=== PATIENT | female | born 1955 | race Caucasian/White ===

== ENCOUNTER → 2021-06-22 | Outpatient (CLI) | payer MEDICARE, OTHER | LOC: EXRD 11:08 | DX: Z78.0 Asymptomatic menopausal state (principal) | CPT/HCPCS: 77080 ==

== ENCOUNTER 2022-01-02 13:22 | Emergency (ER) | payer MEDICARE, OTHER ==
[2022-01-02 14:28] LABS: HEMOGLOBIN 14.7 gm/dl (12.3-15.3); RED BLOOD COUNT 4.73 M/UL (4.00-5.10); WHITE BLOOD COUNT 9.7 K/UL (4.5-11.0)
[2022-01-02 14:50] LABS: BUN/CREATININE RATIO 19 (0-10)
== END 2022-01-02 18:55 | disposition home or self-care (01) ==
LOC: ER1 13:22
PROVIDERS: Physician Assistant
DX: I10 Essential (primary) hypertension (principal); F41.9 Anxiety disorder, unspecified; E78.5 Hyperlipidemia, unspecified
CPT/HCPCS: 71045; 80053; 82550; 82553; 84484; 85025; 93005; 99284

== ENCOUNTER 2022-01-17 01:19 | Emergency (ER) | payer MEDICARE, OTHER | END 2022-01-17 02:38 | disposition left against medical advice (07) | LOC: ER1 01:19 | DX: Z53.21 Procedure and treatment not carried out due to patient leaving prior to being seen by health care provider (principal) ==